=== PATIENT | male | born 1950 | race Asian ===

== ENCOUNTER 2021-05-01 07:51 | Day surgery (SDC) | payer OTHER ==
[2021-05-01] MEDS ORDERED: PROPOFOL 20 ML ONE ×2 (07:55)
[2021-05-01 08:29] VITALS: TEMP 97.8; BMI 31.3
[2021-05-01 11:28] VITALS: BP 101/58; PULSE 52
== END 2021-05-01 10:25 | disposition home or self-care (01) ==
LOC: FASU-ENDO 07:51
PROVIDERS: ATTEND Internal Medicine Gastroenterology
PROC: 0DB68ZX Excision of Stomach, Via Natural or Artificial Opening Endoscopic, Diagnostic (ICD-10-PCS; 2021-05-01)
PROC: 0DB98ZX Excision of Duodenum, Via Natural or Artificial Opening Endoscopic, Diagnostic (ICD-10-PCS; principal; 2021-05-01 09:40)
DX: D50.9 Iron deficiency anemia, unspecified (principal); K29.50 Unspecified chronic gastritis without bleeding; K29.80 Duodenitis without bleeding; B96.81 Helicobacter pylori [H. pylori] as the cause of diseases classified elsewhere
CPT/HCPCS: 88305-TC; 88342-TC

== ENCOUNTER 2025-06-20 10:33 | Day surgery (SDC) | payer OTHER, MEDICARE ==
[2025-06-18 10:37] VITALS: BMI 30.4
[2025-06-20] MEDS ORDERED: BSS (NA/CA/MG/K) BALANCED SALT SOLUTION OPHTH SOLN 15 ML BOTTLE ONE (10:36)
[2025-06-20] MEDS ORDERED: CARBACHOL 0.01% INTRA-OCULAR 1.5 ML VIAL ONE (10:36)
[2025-06-20] MEDS ORDERED: TETRACAINE 0.5% OPHTH SOLN 2 ML BOTTLE ONE (10:36)
[2025-06-20] MEDS ORDERED: LIDOCAINE 1% P/F 10 MG/ML VIAL ONE (10:36)
[2025-06-20] MEDS ORDERED: NEO/POLYMYX B SULF/DEXAMETH OPHTHALMIC 5ML BOTTLE ONE (10:36)
[2025-06-20] MEDS: CYCLOPENTOLATE 2% OPHTH SOLN 2 ML BOTTLE ONE (10:55)
[2025-06-20] MEDS: PHENYLEPHRINE 2.5% OPTHALMIC DROP 2ML BOTTLE ONE (10:55)
[2025-06-20] MEDS: CIPROFLOXACIN 0.3% EYE DROPS 5 ML BOTTLE ONE (10:55)
[2025-06-20] MEDS: TROPICAMIDE 1% OPHTH SOLN 15 ML BOTTLE ONE (10:55)
[2025-06-20 12:23] VITALS: RESP 18; TEMP 97.4
[2025-06-20 14:26] VITALS: BP 128/80; PULSE 72
== END 2025-06-20 13:57 | disposition home or self-care (01) ==
LOC: FASU 10:33
PROVIDERS: ATTEND Ophthalmology
PROC: 08RJ3JZ Replacement of Right Lens with Synthetic Substitute, Percutaneous Approach (ICD-10-PCS; principal; 2025-06-20 11:53)
DX: H26.8 Other specified cataract (principal)
CPT/HCPCS: 66984; V2632